=== PATIENT | male | born 1980 | race Caucasian/White ===

== ENCOUNTER 2019-01-17 14:38 | Emergency (ER) | payer OTHER, SELFPAY ==
[2019-01-17 14:41] VITALS: BP 156/81; PULSE 110; RESP 16; TEMP 36.6; O2SAT 91; BMI 39.9
[2019-01-17 14:45] VITALS: BP 156/81; PULSE 110; RESP 16; TEMP 36.6; O2SAT 91; BMI 39.9
[2019-01-17 14:46] LABS: Bedside Glucose 114 mg/dL (70-110)
[2019-01-17 14:49] VITALS: O2SAT 92
--- NOTE | 2019-01-17 15:08 | CT_ITS ---
STUDY: CT BRAIN WITHOUT CONTRAST REASON FOR EXAM: Male, 38 years old. Seizure. RADIATION DOSAGE (If Supplied By Facility): CTDIvol = ( 44.99 ) mGy, DLP = ( 846.73 ) mGycm TECHNIQUE: Transaxial CT imaging of the brain was performed without administration of intravenous contrast material. Individualized dose optimization techniques were used for this CT. COMPARISON: No relevant priors. FINDINGS: Normal soft tissue structures. Normal calvarium. Normal size ventricles and extra-axial spaces for the patient''s age. There is a 1.8 cm x 1.8 cm rounded hypodensity in the peripheral aspect of the left parietal lobe. A repeat examination following IV contrast is recommended. Normal basal ganglia and thalami. Normal brainstem. Normal cerebellum. There is no intracranial hemorrhage. There are no findings of an acute ischemic infarction. Normal visualized paranasal sinuses. CT/Brain/Head without Contrast IMPRESSION: 1.8 cm x 1.8 cm hypodensity in the peripheral aspect of the left parietal lobe. IV contrast CT scan of the head is recommended. Electronically Signed: Henry Colon, at 15:40 EST , Service support ,
--- NOTE | 2019-01-17 15:09 | EKG12_ITS ---
Test Reason : SEIZURE Blood Pressure : / mmHG Vent. Rate : 092 BPM Atrial Rate : 092 BPM P-R Int : 162 ms QRS Dur : 098 ms QT Int : 372 ms P-R-T Axes : 037 032 031 degrees QTc Int : 460 ms Normal sinus rhythm Normal ECG Confirmed by DANIELLE BURNS, SASHA ([id number]), continuity editor KLARISSA ROD ([id number]) on 01/20/2019 10:04:46 AM Referred By: ALEC Confirmed By:TAMRA SANTOS MD
--- NOTE | 2019-01-17 15:10 | ED.VIS.GEN ---
History of Present Illness Chief Complaint: Seizure Informant: Patient, Family, Friend Onset: Today Context: Sudden Onset Narrative: Patient is a 38-year-old male with no past medical history presenting with seizure-like activity. Patient was at work in a cubicle when coworkers noticed that he was slumped over in his chair and was having abnormal movements. They lowered him to the ground. Coworker who is at the bedside describes him as tensing up his arms and legs repeatedly. He was not breathing when this was going on. He seemed a bitten the inside of his mouth and was bleeding. EMS was called. Per reports patient's finger glucose was 65. He was given given 2 glucose tabs. Coworker was also giving him a sternal rub. The episode lasted for about 45 seconds to a minute. It resolved spontaneously. Patient was quite combative with EMS when they tried to strap him to the gurney. There is no report of urinary incontinence. Patient is since returned to his baseline. Patient denies any headache. He states he does feel slightly nauseous. He denies any chest pain, shortness of breath or difficulty breathing. He denies any history of seizures. His mother notes that his maternal uncle had seizures as a child. Patient denies any loss of coordination, vision changes, numbness or weakness. He notes that he had a head cold about a week ago. He denies any recent fevers no report of any rash. Denies any other complaints at this time. Past Medical History - Allergies and Home Meds Allergies/Adverse Reactions: Allergies No Known Allergies Allergy (Verified 01/17/19 14:40) Primary Care Physician: NOT,DEFINED [NON-STAFF] - Past Medical History: None Surgical History: noncontributory Lives: Spouse/ Significant Other Smoking Status: Never smoker Alcohol: Occasional Drugs: None Review of Systems General: Denies: Chills, Fever, Sweats Eyes: Denies: Visual changes - bilaterally, Diplopia ENT: Denies: Rhinorrhea, Sore throat Cardiovascular: Denies: Chest pain, Palpitations Respiratory: Denies: Dyspnea, Cough, Dyspnea on exertion Gastrointestinal: Reports: Nausea. Denies: Abdominal pain, Vomiting, Diarrhea, Melena, Hematochezia Genitourinary: Denies: Dysuria, Hematuria, Frequency Musculoskeletal: Denies: Back pain, Extremity Pain Skin: Denies: Rash, Wounds Neurological: Reports: - - Seizure-like activity. Denies: Headache, Weakness, Numbness Physical Exam Vital Signs/Narrative: Vital Signs Temp Pulse Resp BP Pulse Ox 01/17/19 14:49 92 01/17/19 14:45 97.8 F 110 H 16 156/81 H 91 01/17/19 14:41 97.8 F 110 H 16 156/81 H 91 Inital Vital Signs reviewed: Yes General: Well nourished, Well developed, No Acute Distress Head: Normocephalic, Atraumatic Eyes: Perrl, EOMI ENT: Moist mucous membranes, No rhinorrhea, TM's clear, - - Superficial l tongue laceration on right lateral tongue Neck: Supple, Nontender, No JVD Cardiovascular: Regular rhythm, No murmurs, Tachycardia Respiratory: No distress, CTA bilaterally, Chest nontender Abdomen: Soft, Nontender, Nondistended, Normal bowel sounds Back: Nontender, Normal Inspection Extremities: Nontender, No edema Skin: Normal color, No rash, - - Sweating slightly Neurological: Alert, Oriented x3, Cranial nerves II-XII grossly intact, Normal Strength, Normal Sensation, - - Normal coordination. Negative for: Confused, Parasthesia, Weakness Psychological: Normal affect, Normal Mood Diagnostic/Tx/Re-eval Clinical Impression(s) from Imaging Studies Brain CT 01/17/19 15:08 IMPRESSION: 1.8 cm x 1.8 cm hypodensity in the peripheral aspect of the left parietal lobe. IV contrast CT scan of the head is recommended. Electronically Signed: Henry Colon, at 15:40 EST , Service support , Laboratory Data 01/17/19 01/17/19 01/17/19 14:41 14:48 14:48 WBC 17.6 H RBC 5.51 Hgb 17.3 H Hct 51.2 MCV 92.9 MCH 31.4 MCHC 33.8 RDW Std Deviation 41.2 RDW Coeff of Tank 12.0 Plt Count 309 MPV 11.0 Sodium 142 Potassium 3.3 L Chloride 106 Carbon Dioxide 16.0 L Anion Gap 20 H BUN 11 Creatinine 1.40 H Estim Creat Clear Calc 81.55 Est GFR (MDRD) Af Amer 72 Est GFR (MDRD) Non-Af 60 BUN/Creatinine Ratio 7.9 L Glucose 117 H Calcium 8.8 TSH 3.85 H POC Glucose 114 H - Rhythm Strip Rhythm Strip: Sinus Rhythm Rate: 92 Ectopy: None - EKG Initial EKG Interpretation: Sinus Rhythm, - - Normal sinus rhythm at a rate of 92 Normal intervals Normal axis Normal ST segments - Medical Decision Making Patient is evaluated after seizure-like activity. Stories per witnesses is consistent with a generalized tonic-clonic seizure. Patient is a tongue laceration is superficial and is initially hypertensive and tachycardic when he arrived. CBC is consistent for leukocytosis and patient has an elevated anion gap. Again this is all consistent with a recent seizure. CT of the brain shows an approximately 2 cm x 2 cm left parietal mass. This is concerning for the cause of his seizure. This is a new finding and needs emergent neurologic evaluation. In addition patient does not have a primary care doctor currently to even follow-up on an outpatient basis. We do not have neurology currently so patient will be transferred to [facility]. Discussed with hospitalist who recommended bolus of Keppra. Patient is given this prior to transfer. Remainder of his work-up is largely unremarkable. He has a mildly elevated creatinine of 1.4 and his TSH is also mildly elevated. Again I do not think this is the cause of his seizure today but can be followed inpatient. ED Disposition - Plan for ED Patient: Disposition: [facility] Diagnosis: New onset seizure, Mass of left parietal lobe Referrals: NOT,DEFINED [NON-STAFF] -
[2019-01-17] MEDS: 0.9% Normal Saline 1,000 ML 1000 ML IV (15:15)
[2019-01-17 15:16] VITALS: BP 126/75; PULSE 92; RESP 12; O2SAT 97
[2019-01-17 15:21] LABS: Hematocrit 51.2 % (40-54); Hemoglobin 17.3 g/dL (13.0-16.5); Mean Corp Hgb Conc 33.8 g/dL (32-36); Mean Corpuscular Hgb 31.4 pg (27.0-32.0); Mean Corpuscular Volume 92.9 fL (80-94); Platelet Count 309 K/mm3 (150-450); RBC Distribution Width SD 41.2 fl (35.1-43.9); Red Blood Count 5.51 M/mm3 (4.6-6.2); White Blood Count 17.6 K/mm3 (4.4-11.0)
[2019-01-17 15:38] LABS: Anion Gap 20 (5-15); BUN 11 mg/dL (7-18); BUN/Creat Ratio 7.9 RATIO (10-20); Calcium,Total 8.8 mg/dL (8.5-10.1); Chloride 106 mmol/L (98-107); EST Glomerular Filtration Rate 60 mL/min (>60); Est Glom Filt Rate - Afr Amer 72 mL/min (>60); Estimated Creatinine Clearance 81.55 ml/min; Glucose 117 mg/dL (74-106); Potassium 3.3 mmol/L (3.5-5.1); Sodium Level 142 mmol/L (136-145); Thyroid Stim Hormone (TSH) 3.85 uIU/mL (0.358-3.74)
[2019-01-17 16:08] VITALS: BP 147/88; PULSE 88; RESP 16; O2SAT 99
[2019-01-17 17:41] VITALS: BP 154/91; PULSE 95; RESP 12; O2SAT 96
== END 2019-01-17 18:04 | disposition short-term general hospital (02) ==
LOC: ED 15:25
PROVIDERS: Emergency Provider Emergency Medicine
DX: R56.9 Unspecified convulsions (principal); G93.9 Disorder of brain, unspecified; S01.512A Laceration without foreign body of oral cavity, initial encounter; X58.XXXA Exposure to other specified factors, initial encounter; Y93.9 Activity, unspecified; Y92.9 Unspecified place or not applicable; Y99.9 Unspecified external cause status; I10 Essential (primary) hypertension; R00.0 Tachycardia, unspecified
CPT/HCPCS: 70450; 80048; 82962; 84443; 85027; 93005; 96361; 96365; 99285; J7030; A4216

== ENCOUNTER 2019-04-24 14:00 | Outpatient (RCR) | payer OTHER, SELFPAY ==
--- NOTE | 2019-03-01 08:00 | SOAP_ITS ---
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 The Patient was accompanied by his , who provided majority of case history due to the significance of the Patient?s aphasia. She detailed the Patients course, with initial presentation to [facility] on 01/18/2020 due to seizure like activity while at work, with imaging identifying a mass in the Patients left parietal lobe. He was subsequently transferred to [facility] in [facility], and later to [facility] where he underwent surgical excision (as stated above). He has remained severely aphasic / apraxic, with no baseline communication issues. Despite his severe communication dysfunction, the Patient appears cognitively intact, and frequently attempts to communicate through nonverbal means. He has dedicatedly completed various language based activities provided by his , to include attempted single word and phoneme production, and written communication activities, with initial benefits noted upon clinician review. 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 He is college educated (associates degree; 3 classes from earning a Bachelor?s degree, no intentions to complete), and was completely independent for all ADL?s and IADL?s prior to his most recent medical complications. 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 ADDITIONAL OBJECTIVE ASSESSMENT RESULTS: 01/17/2019 CT revealed an 1.8 cm x 1.8 cm hypodensity in the peripheral aspect of the left parietal lobe; no intracranial hemorrhage; no findings of an acute ischemic infarction. FUNCTIONAL STATUS ASSESSMENT RESULTS: Aphasia Depression Rating Scale (ADRS): Insomnia Middle: 1 Anxiety Psychic: 1 Anxiety Somatic: 0 Somatic symptoms / Gastrointestinal: 0 Hypochondriasis: 0 Loss of weight: 0 Apparent Sadness: 0 Mimic Slowness / Facial Mobility: 0 Fatigability: 0 Stroke Impact Scale - Version 3 (SIS v.3): Physical Problems: Memory / Thinkin/35 Psychosocial Functionin/45 Communication Abilities: Daily Activities: 50/50 Mobility: Hemiparesis: Activity Participation: TOTAL SCORE: 243/295 RECOVERY SCALE: 70/100 (100 = fully recovered; 0 = none) Reyes Index of [place] in Activities of Daily Livin/6 Bathin Dressin Toiletin Transferrin Continence: 1 Feedin Rachel ? Alberto Instrumental Activities of Daily Living Scale (IADL): 7/8 Ability to Use Telephone: 0 Shoppin Food Preparation: 1 Housekeepin Laundry: 1 Mode of Transportation: 1 Responsibility for Own Medications: 1 Ability to Handle Finances: 1 Functional Ambulation Category (FAC): 5 (ambulator- independent) COGNITIVE COMMUNICATION ASSESSMENT RESULTS (QUANTITATIVE): Karval Test: Correct: Total Time: 3:22 Omissions (right): 1 Omissions (left): 0 Omissions (total): 1 (> 3 suggests an attentional deficit) Distractors: 0/264 Scanning Strategy: left to right Cognitive Assessment for Stroke Patients (CASP): Namin/3 Comprehension: 3/3 Reproducing a Cube: 3/4 Graphic Series: 2/2 Inhibition / Flexibility: 4/4 Bisection of a Horizontal Line: 2/2 Image Recall: 07/19 Praxis: 07/19 Calendar: 07/19 Quick Aphasia Battery (QAB): <FORM 1> Word Comprehension: 10 10 Sentence Comprehension: 6.67 /10 Word Findin.75 /10 Grammatical Construction: 0.88 /10 Speech Motor Programmin /10 Repetition: 5.42 /10 Readin.42 /10 QAB Overall: 4.67 /10 (severe) [place] Diagnostic Aphasia Examination ? Third Edition (BDAE-3) Short Form: Fluency: Phrase Length (rating scale): (raw: 2; percentile: 10th) Melodic Line (rating scale): (raw: 2; percentile: 10th) Grammatical Form (rating scale): (raw: 3; percentile: 20th) Conversation / Expository Speech: Simple Social Responses: (raw: 7; percentile: 100th) Auditory Comprehension: Basic Word Discrimination: (raw: 15; percentile: 60th) Commands: (raw: 9; percentile: 70th) Complex Ideational Material: (raw: 4; percentile: 50th) Articulation: Articulatory Agility (rating scale): (raw: 2; percentile: 10th) Recitation: Automatized Sequence: (raw: 0; percentile: 0) Repetition: Words: (raw: 0; percentile: 0) Sentences: (raw: 0; percentile: 30th) Naming: Responsive Naming: (raw: 0; percentile: 10th) Special Categories: (raw: 12; percentile: 100th) Reading: Matching Cases & Scripts: (raw: 4; percentile: 100th) Number Matching: (raw: 4; percentile: 100th) Picture-word Matching: (raw: 4; percentile: 100th) Oral Word Reading: (raw: 15; percentile: 100th) Oral Sentence Reading: (raw: 0; percentile: 30th) Oral Sentence Comprehension: (raw: 3; percentile: 100th) Sentence / Paragraph Comprehension: (raw: 4; percentile: 100th) Writing: Form: (raw: 8; percentile: 10th) Letter Choice: (raw: 19; percentile: 50th) Motor Facility: (raw: 14; percentile: 100th) Primer Words: (raw: 4; percentile: 100th) Regular Phonics: (raw: 1; percentile: 50th) Common Irregular Words: (raw: 3; percentile: 100th) Written Picture Naming: (raw: 3; percentile: 70th) Narrative Writing: (raw: 5; percentile: 30th) Aphasia Severity Rating Scale (ASRS): 0-1 (little to no usable speech) Apraxia of Speech Rating Scale (ASRS-v1): 4 (nearly always evident; marked severity) COGNITIVE COMMUNICATION ASSESSMENT RESULTS (QUALITATIVE): EXECUTIVE FUNCTIONING: no obviating deficits in reasoning, awareness, anticipating problems, or analyzing situations; sufficient planning and execution of solutions; appears to maintain a flexible or pragmatic approach to tasks; identifies and corrects errors; appears to regulate emotions appropriately; able to maintain goal directed behavior; appears functional, though it is difficult to fully discern given the significance of language impairment. MEMORY: implicit and explicit memory functioning appears intact, though again it is difficult to fully discern given the significance of language impairment. ATTENTION: attention processing appears to be intact, though again it is difficult to fully discern given the significance of language impairment. VISUOSPATIAL ABILITIES: no visuospatial based deficits identified throughout testing. 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, with slowed production rate with severity reduced MLU typically consisting of single syllables / single unintelligible words that were often perseverative in nature and appeared to consist of only nouns / verbs, though it is difficult to discern given the significance of impairment; clear apraxic component with inconsistent production errors and frequent vowel distortions, with apparent groping for placement; functional language comprehension at the word and multisentence levels; less accurate with more grammatically complex phrases, particularly syntactically-dependent sentences; able to comprehend prosodic cues; frequently able to successfully respond / communicate non-verbally (gestures); impaired written / typed communication functioning, with nonfluent patterns consisting of few content words / few verbs or adjectives, with utterances limited to less than four?five words in length (at best); no apparent alexia; apparent dysgraphia / written paraphasias, with odd spelling patterns and disjointed letter / number production; written production output mirroring expressive language deficits. 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 RECOMMENDATIONS FOR INTERVENTION: The Patient requires intensive skilled speech-language intervention targeting apraxia of speech initially via an Articulatory?Kinematic Approaches and / or Multiple Input Phoneme Therapy (MIPT), and later Rate and Rhythm Control Approaches and Contrastive Stress; intervention targeting non-fluent aphasia, with considerations for training and implementation of Gestural Facilitation of Naming (GES), Response Elaboration Training (RET), and Verb Network Strengthening Treatment (VNeST) approaches; as well as utilization of Word Retrieval Cuing Strategies and family training / Conversational Coaching; with strong considerations for further assessment, training, and implementation of Augmentative and Alternative Communication (AAC). POST ASSESSMENT EDUCATION: Results and recommendations were discussed with the Patient and Patients family immediately following assessment completion, with the Patient and Patients family verbalizing understanding and agreement with all recommendations and education provided. FUNCTIONAL OUTCOMES: OUTCOME 1: the Patient will demonstrate improved articulatory precision during structured tasks implementing evidence based approaches (considerations for articulatory ? kinematic approaches, MIPT, rate / rhythm control, contrastive stress), with 80% accuracy at the word production level across 3 consecutive sessions. OUTCOME 2: the Patient will produce grammatically appropriate and fluent messages during structured therapeutic tasks implementing evidence based approaches (considerations for GES, RET), with 80% accuracy at the word production level across 3 consecutive sessions. OUTCOME 3: the Patient will implement Verb Network Strengthening Treatment (VNeST) principles to improve message clarity during both structured and unstructured therapeutic activities in 80% of opportunities across 3 consecutive sessions. OUTCOME 4: the Patient will participate in continual assessment of the communication profile to determine the appropriateness for alternative and augmentative communication device implementation at the supervised level OUTCOME 5: goal adjustment as needed. Fantasma Harris M.A., CCC-SEAFOOD SPECIALIST, CBIS MBSImP Certified, LSVT Certified [facility] Speech-Language Pathology Department [email or web address]
--- NOTE | 2019-03-01 14:26 | HP.OTEVAL ---
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 Date of Evaluation: 03/01/19 Occupational Therapist: Gabriela Lomax, JOLEENR/L - Subjective Subjective: Fadi arrived with , Nuvia. He is father of three children 10, 8, and 6 years old. He was found at work in [place] on 01/17/19 with involuntary movements due to past seizure activities. He was transferred via EMS to [facility] ER. Completed CT scan which indicated brain mass. He was transferred out to [facility] for tumor removal. Surgery completed 02/19/19. He is about a week post opt at this time. 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 - Objective Objective/Observation: lateral scar with maurice f L scap; increased R sided weakness noted. - ROM Shoulder: WFL Elbow: WFL Forearm: WFL Wrist: WFL MP: WFL PIP: WFL DIP: WFL - Strength Historical Archeologist: flexed 75, L 93; ext R 66, L 85 Lateral Pinch: R 22, L 26 Tripod Pinch: R 20, L 25 Tip-to-Tip Pinch: R 13, L 15 Strength Comments: Right sided weakness noted. - Sensation Thumb: R 3.61, L 2.83 Index: R 3.61, L 2.83 Middle: R 3.61, L 2.83 Ring: R 3.61, L 2.83 Little: R 3.61, L 2.83 Kinesthesia: Abnormal - Right, Normal - Left Proprioception: Abnormal - Right, Normal - Left Sensation Comments: Sensation ot better as tasks progressed. - Cognitive Skills Follows Directions: Yes Short Term Memory Impaired: Yes Cognitive Comments: MoCA: ; used written langauge used due to serve expressive aphasia. Some increased spelling errors and at times increased difficulty with finding words needed to indicate answers. If first letter so fword presented he was able to finish word. Inceased visupatial awareness and increased difficulties drawng a clock. He was able to recognize some but not all errors. He will also be recieving ST services for aphasia symptoms and St to complete further cognitive testing. - Attention Attention: Normal - Nine Hole Peg Right: 31.66 s Left: 24. 30 - In-Hand Manipulation Finger to Palm Translation: Moderate - Right, Mild - Left Palm to Finger Translation: Mild - Right, Moderate - Right, Mild - Left Shift: Normal - Right, Normal - Left Rotation: Normal - Right, Normal - Left - Stroke Specific Quality of Life Total SS-QOL Score: 66 - Quick DASH-Disab of Arm,Shoulder& Hand Quick DASH Score: 25.0000 - Goals Goal:: Travel to increased R contracts administrator strength by 20-25 lbs to promote increased strength and endurance needed to complete tasks at PLOF for ADL/IADLs by end of d/c. Goal:: Fadi to increased his ability to manipulate small items with R hand to promote completion of buttons, typing, and general FMC tasks 4/5 trials 80% of the time to promote increased dexterity and (i) by d/c. Goal:: Fadi to completed sensory retraining to promote increased sensation of R dominant hand 4/5 trial s80% of the time to increased perception of R hand and UE needed for ADL/IADls by d/c. Goal:: Fadi to be mod I to return to all ADL/IADLS including child development teacher and work- related tasks 4/5 trials 80% of the time by d/c. Goal:: Fadi to be (I) to complete seqeuncing of 8-12 step tasks to promote increased problem solving skills, attention, and memory needed to complete IADLs tasks of meal prep, home based tasks (within weight limit) for home management, and general family based tasks 4/5 trials 80% of the time by d/c. Goal:: Fadi to be (i) write and sign first and last name to promote increased FMC and coordiantion 4/5 trials 80% of the time by end of 4 weeks. Fadi to be (I) to complete 3-5 sentence paragraps with and without visual promopt to promote increased written langauge needed to promote porgression of skills needed for fucntional activities and the potential of returning to PLOF 4/5 trials 80% of the time by d/c. Goal:: Fadi to be (I) to complete keyboarding tasks to promote increased written language and invoices needed to promote work readiness skills 4/5 trials 80% of the time to promote increased cognitive skills needed to promote returning to PLOF by d/c. - Rehabilitation General Assessment: Fadi arrived with Nuvia for OT initial evaluation on this date of 03/01/19. 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 Fadi presents with increased right sided weakness, some midline sensory deficits for propriopcetive and praxia, visuospatial concerns, problem solving, seqiecing, and written communication skills, and all as decreased ability to complete ADL/IADls at PLOF. Skilled OT warrented to promote (i) and his ability to return to PLOF. Rehabilitation Potential: Good - Anticipated Interventions Anticipated Interventions: Early Active Motion, A/AAROM/PROM, Strengthening, Sensory Retraining, Modalities, Orthoses, Joint Protection/Energy Conservation, Ergonomic Education, Fine Motor Coord/Benson, Neuro Reeducation, Visual/Perceptual Skills, Cognitive Skills, ADL Training, Caregiver Training, Home Program - Visit Plan Frequency: 2x /Week Duration: 4 Weeks General Plan: Fadi to complete skilled OT services to promote increased visual motor, fine motor , bilateral hand coordination and dexerity skills, strengthening, seqeuncing of ADL/IADs, written language and typing for skills to promote (i) and ability to return to work and everyday related tasks. TEXT: Thank you for the opportunity to evaluate your patient. For Medicare and Medicare HMO plans, please review the plan of care and approve it. It will need to be FAXED BACK to us at [phone] for Medicare purposes. Please let me know if there are questions or concerns regarding this plan of care. Physician Signature: Date:
--- NOTE | 2019-03-07 11:28 | HP.OTEVAL ---
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 Date of Evaluation: 03/01/19 Occupational Therapist: Gabriela Lomax, JOLEENR/Jens - Subjective Subjective: Fadi arrived with , Nuvia. He is father of three children 10, 8, and 6 years old. 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 He was found at work in cubical face down on 01/17/19 with involuntary movements. He does have significant past medical history of seizure activity. He was transferred via EMS to [facility] ER. Completed CT scan which indicated brain mass. He was transferred out of [facility] to [facility] for surgery. Tumor was located at parietal lobe. Surgery completed 02/19/19. 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 Result of CVA was left sided hemiparesthia. He regained LE functioning quick and has most of functional movement of hand but left sided weakness and sensory deficits noted on R UE and LE . He is about a week post opt and post CVA at this time and has lingering severe expressive aphasia that ST will be treating. - ADLs Fasteners: Buttons Miscellaneous: Use cell phone, Write, Use computer keyboard Comments: video games Comments: He has three kids 10, 8, 6 year old. 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 - Objective Objective/Observation: lateral scar with maurice of L scap; increased R sided weakness noted. - ROM Shoulder: WFL Elbow: WFL Forearm: WFL Wrist: WFL MP: WFL PIP: WFL DIP: WFL - Strength Dermatology Physician: flexed 75, L 93; ext R 66, L 85 Lateral Pinch: R 22, L 26 Tripod Pinch: R 20, L 25 Tip-to-Tip Pinch: R 13, L 15 Strength Comments: Right sided weakness noted. - Sensation Thumb: R 3.61, L 2.83 Index: R 3.61, L 2.83 Middle: R 3.61, L 2.83 Ring: R 3.61, L 2.83 Little: R 3.61, L 2.83 Kinesthesia: Abnormal - Right, Normal - Left Proprioception: Abnormal - Right, Normal - Left Sensation Comments: Sensation ot better as tasks progressed. - Cognitive Skills Follows Directions: Yes Short Term Memory Impaired: Yes Cognitive Comments: MoCA: ; used written language used due to serve expressive aphasia. Some increased spelling errors and at times increased difficulty with finding words needed to indicate answers. If first letter of word was presented, he was able to finish word. Increased visuospatial awareness and increased difficulties drawing a clock. He was able to recognize some but not all errors. He will also be receiving ST services for aphasia symptoms and St to complete further cognitive testing. - Attention Attention: Normal - Nine Hole Peg Right: 31.66 s Left: 24.30 s - In-Hand Manipulation Finger to Palm Translation: Moderate - Right, Mild - Left Palm to Finger Translation: Mild - Right, Moderate - Right, Mild - Left Shift: Normal - Right, Normal - Left Rotation: Normal - Right, Normal - Left - Stroke Specific Quality of Life Total SS-QOL Score: 66 - Quick DASH-Disab of Arm,Shoulder& Hand Quick DASH Score: 25.0000 - Goals Goal:: Travel to increased R jukebox checker strength by 20-25 lbs to promote increased strength and endurance needed to complete tasks at PLOF for ADL/IADLs by end of d/c. Goal:: Fadi to increased his ability to manipulate small items with R hand to promote completion of buttons, typing, and general FMC tasks 4/5 trials 80% of the time to promote increased dexterity and (i) by d/c. Goal:: Fadi to completed sensory retraining to promote increased sensation of R dominant hand 4/5 trial s80% of the time to increased perception of R hand and UE needed for ADL/IADls by d/c. Goal:: Fadi to be mod I to return to all ADL/IADLS including child welfare counselor and work- related tasks 4/5 trials 80% of the time by d/c. Goal:: Fadi to be (I) to complete seqeuncing of 8-12 step tasks to promote increased problem solving skills, attention, and memory needed to complete IADLs tasks of meal prep, home based tasks (within weight limit) for home management, and general family based tasks 4/5 trials 80% of the time by d/c. Goal:: Fadi to be (i) write and sign first and last name to promote increased FMC and coordiantion 4/5 trials 80% of the time by end of 4 weeks. Fadi to be (I) to complete 3-5 sentence paragraps with and without visual promopt to promote increased written langauge needed to promote porgression of skills needed for fucntional activities and the potential of returning to PLOF 4/5 trials 80% of the time by d/c. Goal:: Fadi to be (I) to complete keyboarding tasks to promote increased written language and invoices needed to promote work readiness skills 4/5 trials 80% of the time to promote increased cognitive skills needed to promote returning to PLOF by d/c. - Rehabilitation General Assessment: Fadi arrived with Nuvia for OT initial evaluation on this date of 03/01/19. 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 This surgery occurred after Fadi was found face down in cubical due to seizure induced state while at work on 01/17/19. He was transferred via EMS to [facility] and then [facility]. 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 Fadi presents with increased right sided weakness, some midline sensory deficits for proprioceptive and apraxia, visuospatial concerns, problem solving, sequencing, and written communication skills, and all as decreased ability to complete ADL/IADls at PLOF. Skilled OT warranted to promote (i) and his ability to return to PLOF. Rehabilitation Potential: Good - Anticipated Interventions Anticipated Interventions: Early Active Motion, A/AAROM/PROM, Strengthening, Sensory Retraining, Modalities, Orthoses, Joint Protection/Energy Conservation, Ergonomic Education, Fine Motor Coord/Benson, Neuro Reeducation, Visual/Perceptual Skills, Cognitive Skills, ADL Training, Caregiver Training, Home Program - Visit Plan Frequency: 2x /Week Duration: 4 Weeks General Plan: Fadi to complete skilled OT services to promote increased visual motor, fine motor , bilateral hand coordination and dexterity skills, strengthening, sequencing of ADL/IADs, written language and typing for skills to promote (i) and ability to return to work and everyday related tasks. TEXT: Thank you for the opportunity to evaluate your patient. For Medicare and Medicare HMO plans, please review the plan of care and approve it. It will need to be FAXED BACK to us at [phone] for Medicare purposes. Please let me know if there are questions or concerns regarding this plan of care. Physician Signature: Date:
--- NOTE | 2019-03-29 13:23 | OTREVAL_ITS ---
RADHA MADDOX, It has been my pleasure to treat FADI BANEGAS over the last 9 visits for Mass of Brain (G93.89). Please see the progress note below for an update on the occupational therapy plan of care! Subjective: Arrived and noted he has been completing HEP of working in typing, writing, and reading. He noted difficult but getting better. He noted speech is getting better and speech output is still very difficult. ST working on language related skills. He noted typing is improving but grammatical errors noted for both typing and writing. He feels that he has about made 65% of improvement. Objective/Function: Completed reassessment on this date of 03/29/19 and results as follows: Strength: food mixer repairer in flexed R 55, L 70. food mixer repairer in ext R 66, L 52. lateral R 23, L 26. tripod R 15, L 15. pincer R 9, L 9. Sensation of monofilament: R hand thumb 3.61, 2nd 3.22, 3rd 2.83, 4th 2.83, 5th 2.83. L hand: normal with all at 2.83. MoCA version 8.2 score: /30. Increased difficulties with speech in which speech therapy is addressing but has improved significantly since initial evaluation score of /30. Further cognitive evaluations to be completed by ST as needed. 9 pegboard: R- 23. 31 s. L- 20.41 s. Signing name at baseline performance. Able to type 2-3 sentence email, likely could complete longer email, with about 3-4 grammatical errors only. He is often able to self-correct. Further challenge to be put in place for written language tasks. In general Fadi is improving and continue to progress with therapy. He will continue to complete working on strengthening, coordination, and general written language skills. Plan Frequency: 2x /Week Duration: 4 Weeks Visits in this POC: 16 Plan: continue POC for 2x weekly appointments for the next 4 weeks. He will continue working on sensory re-integration and training of RUE, strengthening of BUE within 10 lbs restriction (restriction to be removed April 15, 2019) with use of BTE and kinesis/gym-based equipment, as well as working written language skills for further independence of ADL/AIDLs needed to promote returning to work-related tasks and PLOF. Goals - Goals Goal:: Travel to increased R food mixer repairer strength by 20-25 lbs to promote increased strength and endurance needed to complete tasks at PLOF for ADL/IADLs by end of d/c. Goal:: Fadi to increased his ability to manipulate small items with R hand to promote completion of buttons, typing, and general FMC tasks 4/5 trials 80% of the time to promote increased dexterity and (i) by d/c. Goal:: Fadi to completed sensory retraining to promote increased sensation of R dominant hand 4/5 trials 80% of the time to increased perception of R hand and UE needed for ADL/IADls by d/c. Goal:: Fadi to be mod I to return to all ADL/IADLS including child development professor and work- related tasks 4/5 trials 80% of the time by d/c. Goal:: Fadi to be (I) to complete seqeuncing of 8-12 step tasks to promote increased problem solving skills, attention, and memory needed to complete IADLs tasks of meal prep, home based tasks (within weight limit) for home management, and general family based tasks 4/5 trials 80% of the time by d/c. Goal:: Fadi to be (i) write and sign first and last name to promote increased FMC and coordiantion 4/5 trials 80% of the time by end of 4 weeks. - Goal Met. Fadi to be (I) to complete writing 5-7 sentences without visual prompts to promote increased written langauge needed to promote porgression of skills needed for fucntional activities and the potential of returning to PLOF 4/5 trials 80% of the time by d/c. Goal:: Fadi to be (I) to complete keyboarding tasks to promote increased written language and invoices needed to promote work readiness skills 4/5 trials 80% of the time to promote increased cognitive skills needed to promote returning to PLOF by d/c. Anticipated Interventions Anticipated Interventions: Early Active Motion, A/AAROM/PROM, Strengthening, Sensory Retraining, Modalities, Orthoses, Joint Protection/Energy Conservation, Ergonomic Education, Fine Motor Coord/Benson, Neuro Reeducation, Visual/Perceptual Skills, Cognitive Skills, ADL Training, Caregiver Training, Home Program Please do not hesitate to contact me at [phone] by phone or if you have questions or concerns regarding this new plan of care! Sincerely, Gabriela Lomax, OTR/L
--- NOTE | 2019-04-19 08:00 | RE_ITS ---
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 The Patient is fully ambulatory, lives at home with his and 3 children (ages 10, 8, and 6). 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 He is college educated (associates degree; 3 classes from earning a Bachelor?s degree, no intentions to complete), and was completely independent for all ADL?s and IADL?s prior to his most recent medical complications. He remains positive, upbeat, and motivated despite the significance of his language disruption. The Patient participated in intervention sessions targeting expressive language functioning through a variety of approaches targeting apraxia of speech initially via an Articulatory?Kinematic Approaches and later Rate and Rhythm Control Approaches and Contrastive Stress; intervention targeting non- fluent aphasia, with training and implementation of Response Elaboration Training (RET), Verb Network Strengthening Treatment (VNeST), and utilization of Word Retrieval Cuing Strategies. Throughout intervention sessions, he has demonstrated impressive improvements in regards to his expressive communication abilities, demonstrating an ever evolving communication profile which has transitioned from a rather marked Broca?s aphasia with severe apraxia to a more moderate Broca?s aphasia transitioning to anomic aphasia with moderate apraxia. He has benefitted from a combination of feedback methods, particularly recording and hearing his proposed sentence / hearing himself read back his own sentence during review. He has demonstrated increased production errors with more complex tasks, and increased prevalence of grammar / spelling errors with increases in processing time required. He continues to demonstrate apraxic errors, though less significant over the past 2 months, and benefits from visual feedback. Both the Patient and the Patient?s report continued dedicated completed various language based activities provided in sessions at home through his established carryover routine. He is very motivated to improve, and his affect is quite positive (often laughing and joking appropriately, not interfering with session progress in the least). 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 ADDITIONAL OBJECTIVE ASSESSMENT RESULTS: 01/17/2019 CT revealed an 1.8 cm x 1.8 cm hypodensity in the peripheral aspect of the left parietal lobe; no intracranial hemorrhage; no findings of an acute ischemic infarction. FUNCTIONAL STATUS ASSESSMENT RESULTS: JEFFERSON INDEX OF INDEPENDENCE IN ACTIVITIES OF DAILY LIVIN/6 BATHIN DRESSIN TOILETIN TRANSFERRIN CONTINENCE: 1 FEEDIN WINTER-JOSE INSTRUMENTAL ACTIVITIES OF DAILY LIVING SCALE (IADL): 8/8 ABILITY TO USE THE TELEPHONE: 1 SHOPPIN FOOD PREPARATION: 1 HOUSEKEEPIN LAUNDRY: 1 MODE OF TRANSPORTATION: 1 RESPONSIBILITY FOR OWN MEDICATION: 1 ABILITY TO HANDLE FINANCES: 1 FUNCTIONAL AMBULATION CATEGORY (FAC): 5 (ambulator- independent) COGNITIVE COMMUNICATION ASSESSMENT RESULTS (QUANTITATIVE): QUICK APHASIA BATTERY (QAB): <FORM 2> WORD COMPREHENSION: 10 /10 (prior 10) SENTENCE COMPREHENSION: 7.5 /10 (prior 6.67) WORD FINDIN.5 /10 (prior 3.75) GRAMMATICAL CONSTRUCTION: 8 /10 (prior 0.88) SPEECH MOTOR PROGRAMMIN /10 (prior 0) REPETITION: 8.75 /10 (prior 5.42) READIN.92 /10 (prior 5.42) QAB OVERALL: 7.98 /10 (mild) (prior 4.67; SEVERE) APHASIA SEVERITY RATING SCALE (ASRS): 3 (can discuss almost all everyday problem; reduction of speech makes conversation about certain material difficult) APRAXIA OF SPEECH RATING SCALE (ASRS-v1): 3 (nearly always evident; not marked) COGNITIVE COMMUNICATION ASSESSMENT RESULTS (QUALITATIVE): LANGUAGE FUNCTIONING: moderate (improving from severe / profound) 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, with impaired ranges of rhythm, pitch, stress, intonation, etc., with his expression often viewed as dull, emotionless, and lacking compassion and empathy (content does not suggest this); improved expressive content with appropriate content expressed, mean length of utterances has returned to normal age related values; occasional anomic blocks (mild) with noted independent circumlocution, often successful though less successful than would be expected in age matched peers; continued apraxia with groping for placement during production and inconsistent production errors; no alexia; improving dysgraphia with reduced written paraphasias, continued albeit milder odd spelling patterns; written production output mirroring expressive language deficits; mild dysarthria has been more noticeable with improvements in expressive sufficiency. EXECUTIVE FUNCTIONING: no obviating deficits in reasoning, awareness, anticipating problems, or analyzing situations; sufficient planning and execution of solutions; appears to maintain a flexible or pragmatic approach to tasks; identifies and corrects errors; appears to regulate emotions appropriately; able to maintain goal directed behavior; appears functional. MEMORY: implicit and explicit memory functioning appears intact, though again it is difficult to fully discern given the significance of language impairment. ATTENTION: intact focused / selective, sustained, alternating, and divided attention. VISUOSPATIAL ABILITIES: no visuospatial based deficits appreciated. 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 RECOMMENDATIONS FOR INTERVENTION: The Patient continues to require intensive skilled speech-language intervention targeting apraxia of speech via an Articulatory?Kinematic Approach and Rate and Rhythm Control Approaches with Contrastive Stress; intervention targeting non-fluent aphasia via Response Elaboration Training (RET), and Verb Network Strengthening Treatment (VNeST) approaches; as well as utilization of Word Retrieval Cuing Strategies as established through prior intervention sessions to facilitate optimal recovery to / near baseline functioning, with EXCELLENT gains appreciated throughout the initial portions of the intervention cycle. FUNCTIONAL OUTCOMES: OUTCOME 1: the Patient will demonstrate improved articulatory precision during structured tasks implementing evidence based approaches (considerations for articulatory ? kinematic approaches, rate / rhythm control, contrastive stress), with 90% accuracy at the word production level across 3 consecutive sessions. OUTCOME 2: the Patient will produce grammatically appropriate and fluent messages during structured therapeutic tasks implementing evidence based approaches (considerations for RET), with 90% accuracy at the word production level across 3 consecutive sessions. OUTCOME 3: the Patient will implement Verb Network Strengthening Treatment (VNeST) principles to improve message clarity during both structured and unstructured therapeutic activities in 90% of opportunities across 3 consecutive sessions. OUTCOME 4: the Patient will participate in continual assessment of the communication profile to determine the appropriateness for alternative and augmentative communication device implementation at the supervised level OUTCOME 5: goal adjustment as needed. Fantasma Harris M.A., CCC-DIVERSIFIED CROPS SUPERVISOR, CBIS MBSImP Certified, LSVT Certified [facility] Speech-Language Pathology Department [email or web address]
--- NOTE | 2019-04-24 15:08 | HP.OTDCSUM_ITS ---
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 Please see the following information for a summary of their discharge status. 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 - lateral R 58, L 28. - tripod R 19, L 18. - pincer R 12, L 12. sensation: R 2nd 2.83, 3rd 2.83, 4th 2.83 , 5th 2.83 , thumb pad 2.83 thumb tip 3.66. L 2nd 2.83, 3rd 2.83, 4th 2.83 , 5th 2.83 , thumb 2.83. 9 hole pegboard test: R 21.67 s. L 19. [address] s. He will continue ST for language and articulation concerns as that remains biggest deficit. He is progressing and will continue with HEP for sensation and strength. 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 Goal:: Fadi to increased his ability to manipulate small items with R hand to promote completion of buttons, typing, and general FMC tasks 4/5 trials 80% of the time to promote increased dexterity and (i) by d/c. Goal:: Fadi to completed sensory retraining to promote increased sensation of R dominant hand 4/5 trials 80% of the time to increased perception of R hand and UE needed for ADL/IADls by d/c. Goal:: Fadi to be mod I to return to all ADL/IADLS including child & adolescent psychiatrist and work- related tasks 4/5 trials 80% of the time by d/c. Goal:: Fadi to be (I) to complete seqeuncing of 8-12 step tasks to promote increased problem solving skills, attention, and memory needed to complete IADLs tasks of meal prep, home based tasks (within weight limit) for home management, and general family based tasks 4/5 trials 80% of the time by d/c. Goal:: Fadi to be (i) write and sign first and last name to promote increased FMC and coordiantion 4/5 trials 80% of the time by end of 4 weeks. - Goal Met. Fadi to be (I) to complete writing 5-7 sentences without visual prompts to promote increased written langauge needed to promote porgression of skills needed for fucntional activities and the potential of returning to PLOF 9/10 trials 90% of the time by d/c. Goal:: Fadi to be (I) to complete keyboarding tasks to promote increased written language and invoices needed to promote work readiness skills 4/5 trials 80% of the time to promote increased cognitive skills needed to promote returning to PLOF by d/c. - Plan Plan: He will be d/c'd. He has MRI follow - up next week 04/30/2019 and 05/01/2019 follow up with [facility]. His weight restriction was lifted as he is 8 weeks post op. Duncan cohen is doing well and is back to part-time work. He has been set up with gym-based routine and has been provided information for 6-month health and wellness membership to pursue for continued strength training at or complete membership elsewhere to continue strengthening. - D/C Information If there are questions or concerns regarding this patient's occupational therapy, please fell free to call me at [phone]. Thank you for the referral of this patient. Sincerely, Gabriela Lomax, OTR/L
== END 2019-04-24 19:00 | disposition home or self-care (01) ==
LOC: OT 14:00
DX: G93.89 Other specified disorders of brain (principal)
CPT/HCPCS: 92507; 92523; 97110; 97166; 97168; 97530